=== PATIENT | female | born 1990 | race Two or more races ===

== ENCOUNTER 2024-05-10 02:49 | Emergency (ER) | payer MEDICAID, SELFPAY ==
[2024-05-10 03:00] VITALS: BP 113/73; PULSE 80; RESP 18; TEMP 36.9; O2SAT 100
[2024-05-10 03:03] VITALS: BMI 33.1
--- NOTE | 2024-05-10 03:51 | PD.EDRME ---
Rapid Medical Screening Exam [facility] Arrival date/time: 05/10/24 02:49 34F with history of cholecystectomy and appendectomy presents to ED with 3 days of worsening epigastric pain. There is also mild LLQ pain, but epigastric is worse. Patient denies N/V, constipation, dysuria, diarrhea, and inability to pass gas. Chief Complaint: Abdominal Pain Vital signs: Vital Signs Temperature 98.5 F 05/10/24 03:00 Pulse Rate 80 05/10/24 03:00 Respiratory Rate 18 05/10/24 03:00 Blood Pressure 113/73 05/10/24 03:00 Pulse Oximetry (%) 100 05/10/24 03:00 Oxygen Delivery Method Room Air 05/10/24 03:00
[2024-05-10] MEDS: FAMOTIDINE 20 MG TABLET 40 MG PO (03:58)
[2024-05-10] MEDS: MG HYD/AL HYD/SIME (Maalox Reg) SUSP 30 ML UDC PO (03:58)
[2024-05-10 04:31] LABS: Collection Type, Urine Clean Catch
[2024-05-10 04:37] LABS: Basophils # (Auto) 0.1 Thou/mm3 (0.0-0.2); Basophils % (Auto) 1 % (0-2.5); Eosinophils # (Auto) 0.2 Thou/mm3 (0.0-0.5); Eosinophils % (Auto) 3 % (0-10); Hematocrit 32.5 % (36.0-46.0); Immature Granulocytes % (Auto) 0 % (0-0); Immature Granulocytes Auto 0.01 Thou/mm3 (0.00-0.00); Lymphocytes # (Auto) 1.7 Thou/mm3 (1.0-4.8); Lymphocytes % (Auto) 32 % (10-50); Mean Corpuscular HGB Conc 30.8 g/dl (31.0-37.0); Mean Corpuscular Hemoglobin 22.2 pg (25.0-35.0); Mean Corpuscular Volume 72 fL (80-100); Monocytes # (Auto) 0.5 Thou/mm3 (0.0-0.8); Monocytes % (Auto) 9 % (0-12); Neutrophils # (Auto) 2.9 Thou/mm3 (1.8-7.7); Neutrophils % (Auto) 54 % (37-80); Nucleated Red Blood Cell % 0 /100 WBC (0); Platelet Count 200 Thou/mm3 (140-440); RDW Standard Deviation 48.5 fL (36.4-46.3); Red Blood Count 4.51 Miln/mm3 (4.00-5.20); White Blood Count 5.2 Thou/mm3 (3.6-11.0)
[2024-05-10 04:48] LABS: Bilirubin,Urine Negative (Negative); Blood,Urine Trace (Negative); Clarity,Urine Turbid (Clear/Hazy); Color,Urine Colorless (Lt Yel-Yel); Glucose, Urine Negative (Negative); HCG Qualitative,Urine Negative; Ketones,Urine Negative (Negative); Leukocyte Esterase,Urine Negative (Negative); Nitrite,Urine Negative (Negative); Protein,Urine Negative (Neg - Trace); RBC,Urine 1 /hpf (0-3); Specific Gravity,Urine 1.008 (1.001-1.035); Squamous Epithelial Cell,Urine 13 /hpf (0-5); Urobilinogen,Urine Negative mg/dL (0.0-1.0); WBC,Urine 2 /hpf (0-5)
[2024-05-10 05:01] LABS: Amphetamine/Methamp Scrn,U Negative (Negative); Barbiturate Screen,Urine Negative (Negative); Benzodiazepines Screen,Urine Negative (Negative); Benzoylecgonine Screen, Ur Negative (Negative); Fentanyl Screen,Urine Negative (Negative); Opiate Screen,Urine Negative (Negative); THC Screen,Urine Negative (Negative)
[2024-05-10 05:04] LABS: Alanine Aminotransferase 23 U/L (10-49); Albumin, Serum 4.9 gm/dL (3.5-5.0); Alkaline Phosphatase 69 U/L (46-116); Anion Gap 7 (7-16); Aspartate Amino Transferase 22 U/L (0-34); BUN/Creatinine Ratio 17 Ratio (12-20); Bilirubin,Total 0.3 mg/dL (0.3-1.2); Blood Urea Nitrogen 10 mg/dL (9-23); Calcium 9.5 mg/dL (8.3-10.6); Calcium (Corrected) 9.5 mg/dL (8.5-10.1); Carbon Dioxide 26.3 mMol/L (20.0-31.0); Chloride 105 mMol/L (98-107); Creatinine (Component) 0.6 mg/dL (0.6-1.3); Globulin 2.4 gm/dL (2.3-3.5); Glucose 88 mg/dL (74-106); Lipase 45 U/L (12-53); Osmolality,Calculated 273 (275-295); Sodium 138 mMol/L (136-145); Total Protein 7.3 gm/dL (5.7-8.2); eGFR > 60 See Note
[2024-05-10] MEDS: LIDOCAINE VISCOUS 2% 15 ML UDC PO (05:55)
[2024-05-10 06:46] VITALS: BP 127/76; PULSE 64; RESP 17; TEMP 36.6; O2SAT 100
--- NOTE | 2024-05-10 07:36 | EDNOTE_ITS ---
ED General RME/HPI General Chief complaint: Abdominal Pain Stated complaint: EPIGASTRIC PAIN X 3 DAYS Time Seen by Provider: 05/10/24 04:07 Arrival date/time: 05/10/24 02:49 RME / HPI RME / HPI narrative: RME: 05/10/24 02:49 34F with history of cholecystectomy and appendectomy presents to ED with 3 days of worsening epigastric pain. There is also mild LLQ pain, but epigastric is worse. Patient denies N/V, constipation, dysuria, diarrhea, and inability to pass gas. JON HPI: 34-year-old female with a history of cholecystectomy, appendectomy, who presents with approximately 1 week of worsening epigastric pain. She also has some diffuse cramping, and complaints of constipation. She states she took Tylenol for the pain several days ago with a slight improvement but has not taken anything since. She denies worsening of pain with eating or improvement in pain with eating. She denies fevers chills or sweats. She denies diarrhea. Complains of chronic constipation. Related Data Previous Rx's ?Medication ?Instructions ?Recorded Hydrocodone/Acetaminophen * (NORCO 1 tab PO Q6H PRN pain #15 tabs 07/18/15 5/325 *) ferrous sulfate 325 mg (65 mg 325 mg PO QDAY #30 tabs 02/15/24 iron) tablet (iron) meclizine 25 mg tablet 25 mg PO TID PRN motion sickness 02/15/24 #20 tabs Allergies Allergy/AdvReac Type Severity Reaction Status Date / Time No Known Allergies Allergy Verified 05/10/24 02:53 Review of Systems Review of Systems Systems Reviewed: All systems reviewed, normal except as documented ED Exam Narrative Physical exam: GENERAL APPEARANCE: AxOx4, generally well-appearing, no acute distress. HEENT: NC, AT. MMM. EOMI, clear conjunctiva, oropharynx clear. NECK: Supple without lymphadenopathy. No stiffness or restricted ROM. HEART: Normal rate and regular rhythm, normal S1/S1, no m/r/g LUNGS: CTAB, moving air well. No crackles or wheezes are heard. ABDOMEN: Soft, mild epigastric tender, nondistended with good bowel sounds heard. BACK: No midline C/T/L spine pain or deformity, No CVAT, no obvious deformity. EXTREMITIES: Without cyanosis, clubbing or edema. MUSCULOSKELETAL: FROM of all major joints, no chest tenderness NEUROLOGICAL: Grossly nonfocal. Alert and oriented, moving all 4 extremities. CN not formally tested but appear grossly intact. Observed to ambulate with normal gait. Skin: Warm and dry without any rash. Course Quality Measures none Orders Category Date Time Status CBC Stat Lab 05/10/24 04:24 Completed CMP [Comprehensive Metabolic Panel] Stat Lab 05/10/24 04:24 Completed Drug Screen,Urine Stat Lab 05/10/24 04:21 Completed HCG Qualitative,Urine Stat Lab 05/10/24 04:21 Completed Lipase Stat Lab 05/10/24 04:24 Completed UA [Urinalysis] Stat Lab 05/10/24 04:21 Completed Famotidine [Pepcid] Med 05/10/24 03:51 Discontinued 40 mg PO X1 ONE Lidocaine 2% Viscous [Xylocaine 2% Viscous] Med 05/10/24 05:41 Discontinued 15 ml PO X1 ONE mg Hyd/Al Hyd/Azucena Susp [Maalox Susp] Med 05/10/24 03:51 Discontinued 30 ml PO X1 ONE Vital Signs Vital signs: Vital Signs Temperature 98.5 F 05/10/24 03:00 Pulse Rate 80 05/10/24 03:00 Respiratory Rate 18 05/10/24 03:00 Blood Pressure 113/73 05/10/24 03:00 Pulse Oximetry (%) 100 05/10/24 03:00 Oxygen Delivery Method Room Air 05/10/24 03:00 SpO2 100% on room air, not hypoxic MDM Patient data External records reviewed:: [facility] previous records Clinical information provided by:: patient and spouse Social determinants that could affect healthcare access:: none Patient has the following chronic illnesses:: None How is presenting disease/condition affected by chronic disease/condition?: no chronic disease Evaluation data The following diagnostics were reviewed and interpreted by me:: lab results Lab and/or radiology exams considered but not ordered:: None Interpretation Summary: As per narrative Medications Medications considered but not ordered:: None Medication administrations:: Medication Administration History Discontinued Medications Al Hydrox/Mg Hydrox/Simethicone (Mg Hyd/Al Hyd/Azucena (Maalox Reg) Susp 30 Ml Udc) 30 ml PO X1 ONE Stop: 05/10/24 03:52 Last Admin: 05/10/24 03:58 Dose: 30 ml Documented By: OA Famotidine (Famotidine 20 Mg Tablet) 40 mg PO X1 ONE Stop: 05/10/24 03:52 Last Admin: 05/10/24 03:58 Dose: 40 mg Documented By: OA Lidocaine HCl (Lidocaine Viscous 2% 15 Ml Udc) 15 ml PO X1 ONE Stop: 05/10/24 05:42 Last Admin: 05/10/24 05:55 Dose: 15 ml Documented By: CVL Above Consultations Consultation(s) initiated? (list below): No Diagnosis Differential Diagnosis ED Complaint MDM: Gastritis, peptic ulcer disease, pancreatitis Most likely diagnosis given after review of the tests above:: See below Admission Indicated Admission indicated?: not indicated Explain why admission is indicated or not indicated:: As per narrative Admission Request Was there a request for admission?: No Disposition Plan Disposition Plan: Discharge Discharge Attestation Discharge Attestation: The patient and all family members were given an opportunity to ask questions and understood the discharge instructions. Discharge instructions specifically effects, indications for sooner follow up or return to the emergency department, and the expected course of current diagnosis. Patient condition: Stable Medical Decision Making MDM Narrative MDM Narrative: Ms. Reeves presents to the emergency department with epigastric pain consistent with gastritis. She otherwise is stable vital signs and is clinically well- appearing with a benign abdominal exam. She will be appropriate for outpatient antacids, as she currently is not taking anything we will start her with [id number] H2 blockers. If this not improve she can follow-up with her primary care doctor for recheck, possible further testing, or even advancing to proton pump inhibitors at that time. Laboratory testing was sent via the [facility] process which on my interpretation was no acute findings. Differential Diagnosis Differential Diagnosis: Gastritis, peptic ulcer disease, pancreatitis Lab Data 05/10/24 04:24 05/10/24 04:24 Labs: Lab Results 05/10/24 05/10/24 Range/Units 04:21 04:24 WBC 5.2 (3.6-11.0) Thou/mm3 RBC 4.51 (4.00-5.20) Miln/mm3 Hgb 10.0 L (12.0-16.0) g/dL Hct 32.5 L (36.0-46.0) % MCV 72 L (80-100) fL MCH 22.2 L (25.0-35.0) pg MCHC 30.8 L (31.0-37.0) g/dl RDW Std Deviation 48.5 H (36.4-46.3) fL Plt Count 200 (140-440) Thou/mm3 Neut % (Auto) 54 (37-80) % Lymph % (Auto) 32 (10-50) % [place] % (Auto) 9 (0-12) % Eos % (Auto) 3 (0-10) % Baso % (Auto) 1 (0-2.5) % Neut # (Auto) 2.9 (1.8-7.7) Thou/mm3 Lymph # (Auto) 1.7 (1.0-4.8) Thou/mm3 [place] # (Auto) 0.5 (0.0-0.8) Thou/mm3 Eos # (Auto) 0.2 (0.0-0.5) Thou/mm3 Baso # (Auto) 0.1 (0.0-0.2) Thou/mm3 Immature Gran # (Auto) 0.01 H (0.00-0.00) Thou/mm3 Absolute Nucleated RBC 0.00 (0.00-0.00) Thou/mm3 Immature Gran % 0 (0-0) % Nucleated RBC % 0 (0) /100 WBC Sodium 138 (136-145) mMol/L Potassium 4.0 (3.4-5.1) mMol/L Chloride 105 (98-107) mMol/L Carbon Dioxide 26.3 (20.0-31.0) mMol/L Anion Gap 7 (7-16) BUN 10 (9-23) mg/dL Creatinine 0.6 (0.6-1.3) mg/dL Estim Creat Clear Calc 164.0 (>60) mL/min eGFR > 60 (60 - ) See Note BUN/Creatinine Ratio 17 (12-20) Ratio Glucose 88 (74-106) mg/dL Calculated Osmolality 273 L (275-295) Calcium 9.5 (8.3-10.6) mg/dL Corrected Calcium 9.5 (8.5-10.1) mg/dL Total Bilirubin 0.3 (0.3-1.2) mg/dL AST 22 (0-34) U/L ALT 23 (10-49) U/L Alkaline Phosphatase 69 (46-116) U/L Total Protein 7.3 (5.7-8.2) gm/dL Albumin 4.9 (3.5-5.0) gm/dL Globulin 2.4 (2.3-3.5) gm/dL Albumin/Globulin Ratio 2.0 (1.2-2.2) Lipase 45 (12-53) U/L Ur Collection Type Clean Catch Urine Color Colorless A (Lt Yel-Yel) Urine Clarity Turbid A (Clear/Hazy) Urine pH 6.0 (5.0-7.0) Ur Specific [place] 1.008 (1.001-1.035) Urine Protein Negative (Neg - Trace) Urine Glucose (UA) Negative (Negative) Urine Ketones Negative (Negative) Urine Blood Trace (Negative) Urine Nitrite Negative (Negative) Urine Bilirubin Negative (Negative) Urine Urobilinogen (Auto) Negative (0.0-1.0) mg/dL Ur Leukocyte Esterase Negative (Negative) Urine RBC 1 (0-3) /hpf Urine WBC 2 (0-5) /hpf Ur Squamous Epith Cells 13 H (0-5) /hpf Urine Bacteria None (None) Urine HCG, Qual Negative Urine Opiates Screen Negative (Negative) Urine Fentanyl Screen Negative (Negative) Ur Barbiturates Screen Negative (Negative) U Amphetamin/Meth Scrn Negative (Negative) U Benzodiazepines Scrn Negative (Negative) U Cocaine Metab Screen Negative (Negative) U Marijuana (THC) Screen Negative (Negative) Discharge Plan Plan Patient Disposition: HOME (Self Care) Prescriptions/Referrals Prescriptions/Med Rec: No Action Hydrocodone/Acetaminophen * (NORCO 5/325 *) 1 TAB tablet 1 tab PO Q6H PRN (Reason: pain) Qty: 15 0RF ferrous sulfate [iron] 325 mg (65 mg iron) tablet 325 mg PO QDAY Qty: 30 0RF meclizine 25 mg tablet 25 mg PO TID PRN (Reason: motion sickness) Qty: 20 0RF Referrals: No Primary/Family,Physician [Primary Care Provider] - In 1 week Problem List Clinical Impression: Gastritis Patient/Caregiver Discharge Instructions Education Materials: ED Gastritis (Adult) Additional Instructions: Puede lori 20 mg de famotidina (Pepcid) de venta jamil dos veces al d?a lisbeth los pr?ximos 10 d?as. Rodo un seguimiento con [place]all m?dico de atenci?n primaria en 7 a 10 d?as si los s?ntomas no mejoran. Puede regresar al departamento de emergencias antes si los s?ntomas empeoran o si nota alg?n problema nuevo que le preocupe. Print Language: Pakistani Stand Alone Forms: Shaye Award Info., Patient Portal Info Letter
[2024-05-10 07:58] VITALS: BP 109/51; PULSE 64; RESP 16; O2SAT 100
== END 2024-05-10 07:58 | disposition home or self-care (01) ==
PROVIDERS: Physician Assistant; Emergency Provider Emergency Medicine
DX: K29.70 Gastritis, unspecified, without bleeding (principal)
CPT/HCPCS: 36415; 80053; 80307; 81001; 81025; 83690; 85025; 99283; J3490; A9270